=== PATIENT | male | born 1950 | race Caucasian/White ===

== ENCOUNTER → 2016-08-14 | Outpatient (CLI) | payer BC ==
--- NOTE | 2016-08-14 22:00 | PN ---
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 This is his yearly followup. His weight has been stable; it has been ranging between 309 and 311. He is still working midnights. He is fully awake while driving, does not fall asleep while driving; has never been involved in a motor vehicle accident; has never fallen asleep behind the wheel. No major hypersomnia or sleepiness. Based on the compliance data that was collected between 05/16/2016 and 08/13/2016, over the past 90 days the patient's average CPAP use has been 13 hours and 21 minutes. He has been using his CPAP more than 4 hours almost every night. He has no specific complaints otherwise for now. He is doing well. His Burdine score is 3. No new onset medical problems. He is still on treatment for hypertension, hyperlipidemia and history of depression. BP is 124/86, pulse 100, respiration 16, temperature 97.4, saturation 93% on room air. BMI is 42.1. Weight is 311. Height is 6 feet 0 inches. GENERAL APPEARANCE: Calm, comfortable. HEENT: Negative for JVD. There is no goiter or neck mass. LUNGS: Diminished breath sounds bilaterally. Heart sounds are regular rate and rhythm. Normal S1, S2. ABDOMEN: Soft, nontender. No organomegaly. EXTREMITIES: No edema. No cyanosis, or clubbing. IMPRESSION: 1. Obstructive sleep apnea. The patient continues to be on CPAP at a pressure of 9 cm of water. His treatment remains successful. Compliance data shows adequate use. 2. Moderate to severe obstructive sleep apnea with an AHI of 20 at baseline. 3. Morbid obesity with a stable weight. 4. Hypertension. 5. Generalized anxiety/depression. PLAN: 1. Renew the patient's CPAP supplies. 2. The patient was given a Mirage FX nose mask along with tubing and supplies. 3. Encourage weight loss. The patient has been very compliant with CPAP therapy. I will see him back in a year's time and in followup earlier if needed. 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
== END | disposition home or self-care (01) ==
LOC: SLEEP 13:18
PROVIDERS: ATTEND Internal Medicine Critical Care Medicine
DX: G47.33 Obstructive sleep apnea (adult) (pediatric) (principal); E66.01 Morbid (severe) obesity due to excess calories; Z68.41 Body mass index [BMI] 40.0-44.9, adult; I10 Essential (primary) hypertension; F32.9 Major depressive disorder, single episode, unspecified; F41.1 Generalized anxiety disorder; Z99.89 Dependence on other enabling machines and devices